=== PATIENT | female | born 1965 | race Caucasian/White ===

== ENCOUNTER 2017-09-29 18:23 | Emergency (ER) | payer OTHER, SELFPAY ==
[2017-09-29] MEDS ORDERED: Lidocaine 1% (PF) 30 ML VIAL ONE (20:24)
[2017-09-29] MEDS ORDERED: Diazepam 5 MG TAB ONE (20:25)
[2017-09-29] MEDS ORDERED: Ketorolac Tromethamine 30 MG/ML VIAL ONE (20:25)
== END 2017-09-29 21:25 | disposition home or self-care (01) ==
LOC: ERS 18:23
DX: M62.830 Muscle spasm of back (principal); K21.9 Gastro-esophageal reflux disease without esophagitis; I25.2 Old myocardial infarction; E78.5 Hyperlipidemia, unspecified; I10 Essential (primary) hypertension; J44.9 Chronic obstructive pulmonary disease, unspecified; F41.9 Anxiety disorder, unspecified; F32.9 Major depressive disorder, single episode, unspecified; F17.210 Nicotine dependence, cigarettes, uncomplicated; Z79.899 Other long term (current) drug therapy; Z79.82 Long term (current) use of aspirin
CPT/HCPCS: 20552; 96372; J1885; J2001

== ENCOUNTER 2018-09-23 18:27 | Emergency (ER) | payer SELFPAY ==
[2018-09-23] MEDS ORDERED: Lidocaine 4% Cream 5 GM TUBE w/ Tegaderm ONE (20:04)
== END 2018-09-23 21:25 | disposition home or self-care (01) ==
LOC: ERS 18:27
DX: L72.3 Sebaceous cyst (principal); F41.9 Anxiety disorder, unspecified; F32.9 Major depressive disorder, single episode, unspecified; F43.10 Post-traumatic stress disorder, unspecified; K21.9 Gastro-esophageal reflux disease without esophagitis; E78.5 Hyperlipidemia, unspecified; I10 Essential (primary) hypertension; J44.9 Chronic obstructive pulmonary disease, unspecified; F17.210 Nicotine dependence, cigarettes, uncomplicated; Z79.899 Other long term (current) drug therapy; Z79.82 Long term (current) use of aspirin
CPT/HCPCS: 99282

== ENCOUNTER 2019-01-29 11:38 | Observation (INO) | payer SELFPAY ==
[2019-01-29] MEDS ORDERED: ISOVUE-370 76%-LOCM 1 ML ONE (12:00)
[2019-01-29 12:05] LABS: #Basophils 0.1 thou/uL (0.0-0.2); #Eosinphils 0.1 thou/uL (0.0-0.7); #Lymphocytes 3.1 thou/uL (1.20-3.40); #Monocytes 0.6 thou/uL (0.11-0.59); #Neutrophils 5.5 thou/uL (1.40-6.50); %Basophils 0.9 % (0.0-1.0); %Eosinophils 0.6 % (0.0-10.0); %Lymphocytes 33.2 % (21.0-51.0); %Monocytes 6.2 % (0.0-10.0); %Neutrophils 59.1 % (42.0-75.0); Hemoglobin 14.8 g/dL (12.0-16.0); Mean Corpuscular HGB CONC 34.5 g/dL (32.0-36.0); Mean Corpuscular Hemoglobin 31.2 pg (27.0-31.0); Mean Corpuscular Volume 90.5 fL (78.0-98.0); Mean Platelet Volume 7.2 fL (7.4-10.4); Platelet Count 258 thou/uL (130-400); RBC Distribution Width 12.3 % (11.5-14.5); Red Blood Cell (RBC) Count 4.74 mill/uL (4.20-5.40); White Blood Cell (WBC) Count 9.3 thou/uL (4.8-10.8)
--- NOTE | 2019-01-29 12:21 | RAD ---
EXAM: Single view of the chest HISTORY: Chest pain and shortness of breath for 3 days COMPARISON: 02/15/2015 FINDINGS: Single view of the chest shows a normal sized cardiomediastinal silhouette. The patient is status post sternotomy. There is no evidence of consolidation, mass, or pleural effusion. The bones are unremarkable. IMPRESSION: No evidence of acute cardiopulmonary disease
[2019-01-29 12:32] LABS: ALT (SGPT) 36 U/L (8-55); AST (SGOT) 28 U/L (5-34); Albumin 4.7 g/dL (3.5-5.0); Alkaline Phosphatase 99 U/L (40-150); Anion Gap 14 mmol/L (10-20); BUN (Urea Nitrogen) 10 mg/dL (9.8-20.1); Bilirubin, Total 0.3 mg/dL (0.2-1.2); Calc. Creatinine Clearance 0 mL/min (70-130); Calcium 9.4 mg/dL (7.8-10.44); Carbon Dioxide 24 mmol/L (22-29); Chloride 103 mmol/L (98-107); Estimated GFR-MDRD 68; Globulin 2.6 g/dL (2.4-3.5); Glucose 181 mg/dL (70-105); Potassium 3.8 mmol/L (3.5-5.1); Protein, Total 7.3 g/dL (6.0-8.3); Sodium 137 mmol/L (136-145)
[2019-01-29] MEDS ORDERED: Acetaminophen 500 MG TAB ONE (12:56)
--- NOTE | 2019-01-29 13:24 | CT ---
EXAM: CT angiogram chest and abdomen with IV contrast and three-dimensional reconstructions PROVIDED CLINICAL HISTORY: Chest pain COMPARISON: None FINDINGS: Median sternotomy and CABG changes are seen. The heart, pericardium and great vessels demonstrate an otherwise unremarkable CT angiographic appearance. There is no evidence for thoracic aneurysm or dissection. There is no evidence for central or segmental pulmonary embolus. The lungs are free of si gnificant opacity. Sub-4 mm noncalcified right lower lobe pulmonary nodule. The airway appears patent and of normal caliber. There is no evidence for thoracic lymph node enlargement. There is no evidence for abdominal aortic aneurysm. The mesenteric and renal vessels demonstrate no s ignificant stenosis. Multifocal atelectatic vascular calcification and mural plaque involving the distal abdominal aorta. Diffuse fatty infiltration of the liver. The solid abdominal organs are subop timally evaluated in the arterial phase of contrast but demonstrate an otherwise unremarkable CT appearance for the phase of contrast in which the study was acquired. The osseous structures demonstrate no concerning lytic or blastic lesions. Bilateral L5 pars defects with grade 1 spondylolisthesis of L5 on S1. IMPRESSION: No evidence for an acute process. Chronic findings as above.
[2019-01-29] MEDS ORDERED: Aspirin 325 MG TAB ONE (13:56)
[2019-01-29 15:43] LABS: Troponin I Less than 0.010 ng/mL (< 0.028)
[2019-01-29 16:13] VITALS: BMI 35.2
[2019-01-29] MEDS ORDERED: Cyclobenzaprine 10 MG TAB PO PRN (17:31)
[2019-01-29] MEDS ORDERED: Acetaminophen 325 MG TAB PO PRN (17:33)
[2019-01-29] MEDS ORDERED: Dextrose 50% Abboject 50 ML SYRINGE SLOW IVP PRN (17:33)
[2019-01-29] MEDS ORDERED: Ondansetron ODT 4 MG TAB PO PRN (17:33)
[2019-01-29] MEDS ORDERED: Ondansetron PF 4 MG/2 ML Vial IVP PRN (17:33)
[2019-01-29] MEDS ORDERED: Dextrose 5% in Water 1,000 ML IV PRN (17:33)
[2019-01-29] MEDS ORDERED: HumaLOG 300 UNITS/3 ML VIAL SC PRN ×2 (17:33)
[2019-01-29 18:24] LABS: Troponin I Less than 0.010 ng/mL (< 0.028)
[2019-01-29] MEDS ORDERED: Sodium Chloride 0.9% (PF) 10 ML VIAL FS PRN (18:30)
[2019-01-29] MEDS ORDERED: Pantoprazole 40 MG VIAL IVP SCH (18:30)
[2019-01-29] MEDS: Gabapentin 300 MG CAP PO SCH (20:03)
[2019-01-29] MEDS: clonazePAM 1 MG TAB PO SCH (20:03)
[2019-01-29] MEDS: Metoprolol Tartrate 25 MG TAB PO SCH (20:03)
[2019-01-29] MEDS ORDERED: Zolpidem Tartrate 5 MG TAB PO SCH (21:00)
[2019-01-29] MEDS ORDERED: Prazosin HCl 1 MG CAP PO SCH (21:00)
--- NOTE | 2019-01-29 22:57 | HP ---
PRIMARY CARE PHYSICIAN: [facility] in [place]. CHIEF COMPLAINT: Chest pain. HISTORY OF PRESENT ILLNESS: Ms. Tracy is a 53-year-old female with past medical history of hypertension; hyperlipidemia; coronary artery disease, status post CABG; GERD; COPD, who had presented to [facility] earlier today after she has been experiencing worsening chest pain over the last 4 days, now she states that the chest pain comes and goes and is worse with activity. She had denied any fever, chills, any lightheadedness, blurred vision or dizziness, any shortness of breath, abdominal pain, nausea, vomiting, or change in stool. She had stated that during this time, she has also had chronic headaches, and appears to be at her baseline. However, when she would take her home medications for pain, the chest pain or the headaches are not resolved. During her workup in the ED, her serial troponin was found to be negative x2. Her EKG showed normal sinus rhythm and her portable chest x-ray was normal. She also underwent a CT dissection protocol, which showed no evidence of acute process; however, chronic findings are noted. Her blood pressure and other vital signs remained stable and she was given aspirin and Tylenol, which did not improve her symptoms. REVIEW OF SYSTEMS: All other systems reviewed and found to be negative unless mentioned in HPI. PAST MEDICAL HISTORY: Hypertension, hyperlipidemia, gastroesophageal reflux disease, coronary artery disease, status post CABG, fibromyalgia, COPD. PAST SURGICAL HISTORY: Hysterectomy, coronary artery bypass graft surgery x4 vessels, and carpal tunnel surgery on the left wrist. PAST PSYCHIATRIC HISTORY: Anxiety, depression, and posttraumatic stress disorder. SOCIAL HISTORY: The patient denies alcohol or illicit drug use. She is a former cigarette smoker and is currently vaping for the last 3 years. Before that she had smoked cigarettes for about 30 years. KNOWN ALLERGIES: No known drug allergies. CURRENT HOME MEDICATIONS: 1. Clonazepam 1 mg p.o. t.i.d. 2. Metformin 500 mg oral twice daily. 3. Protonix 40 mg oral daily. 4. Amlodipine 10 mg oral daily. 5. Aspirin 81 mg daily. 6. Buspirone 10 mg oral daily. 7. Cyclobenzaprine p.o. at bedtime p.r.n. muscle spasms. 8. Gabapentin 300 mg oral twice daily. 9. Lamictal 100 mg oral daily. 10. Metoprolol 25 mg oral twice daily. 11. Prazosin 2 mg oral at bedtime. 12. Zolpidem 10 mg oral at bedtime. PHYSICAL EXAMINATION: VITAL SIGNS: BP 128/62, pulse 69, respirations 20, temperature 97.7, O2 saturation 97% on room air. GENERAL: The patient is awake, alert, and oriented x3. She is currently lying comfortably in bed and in no acute distress. HEENT: Atraumatic, normocephalic. Pupils are round and reactive to light. Extraocular muscles intact. Moist mucous membranes noted. NECK: Soft, supple. Trachea midline. CARDIOVASCULAR: Positive S1 and S2. Regular rate and rhythm. No murmur auscultated. RESPIRATORY: Clear to auscultation bilaterally. No wheezes, rales, or rhonchi. ABDOMEN: Soft, nontender. Bowel sounds present. MUSCULOSKELETAL: Moves all extremities equal. Pedal and radial pulses 2+ bilaterally. No edema noted. NEUROLOGIC: Cranial nerves 2 through 12 grossly intact. No focal deficits noted. Speech intact and normal. Gait not assessed. SKIN: Warm, dry, and intact. No rashes. No ulceration noted. PSYCHIATRIC: Good mood and affect. LABORATORY DATA: WBC 9.3, RBC 4.74, hemoglobin 14.8, hematocrit 42.9, platelets 258. Sodium 137, potassium 3.8, anion gap 14, BUN 10, creatinine 0.87, estimated GFR 68, glucose 181, troponin less than 0.010 x2. DIAGNOSTIC IMAGING: Portable chest x-ray showed no evidence of acute cardiopulmonary disease. CTA of the chest showed no evidence of acute process; however, chronic findings noted including a grade 1 spondylolisthesis of L5 and S1 and no further changes. ASSESSMENT AND PLAN: 1. Chest pain, so far serial troponins were found to be negative x2. CT of the chest was unremarkable. Her blood pressure and other vital signs remained stable, and her chest pain has also improved. We will order a nuclear medicine cardiac stress test for the morning to rule out acute coronary syndrome and she will be monitored on telemetry for any further arrhythmias. 2. Hypertension. Continue home regimen and monitor blood pressure and other vital signs closely. 3. Hyperlipidemia. Continue home statin. 4. Diabetes mellitus type 2, hold home dose of metformin and place on insulin sliding scale with frequent Accu-Cheks. 5. History of coronary artery disease status post coronary artery bypass graft, continue home regimen. 6. History of chronic obstructive pulmonary disease, currently stable at this time. We will monitor patient's symptoms closely and if she becomes symptomatic, we will add DuoNebs as needed. 7. History of gastroesophageal reflux disease. Continue on IV Protonix. 8. Deep venous thrombosis and gastrointestinal prophylaxis. CODE STATUS: Full code. DISPOSITION: Pending further workup and clinical findings. Job ID: [id number]
[2019-01-30 05:31] LABS: #Basophils 0.1 thou/uL (0.0-0.2); #Eosinphils 0.1 thou/uL (0.0-0.7); #Lymphocytes 3.2 thou/uL (1.20-3.40); #Monocytes 0.6 thou/uL (0.11-0.59); #Neutrophils 4.2 thou/uL (1.40-6.50); %Basophils 0.9 % (0.0-1.0); %Eosinophils 1.8 % (0.0-10.0); %Lymphocytes 38.4 % (21.0-51.0); %Monocytes 7.8 % (0.0-10.0); %Neutrophils 51.1 % (42.0-75.0); Hemoglobin 14.7 g/dL (12.0-16.0); Mean Corpuscular HGB CONC 34.1 g/dL (32.0-36.0); Mean Corpuscular Hemoglobin 31.4 pg (27.0-31.0); Mean Platelet Volume 7.5 fL (7.4-10.4); Platelet Count 226 thou/uL (130-400); RBC Distribution Width 12.4 % (11.5-14.5); Red Blood Cell (RBC) Count 4.69 mill/uL (4.20-5.40); White Blood Cell (WBC) Count 8.3 thou/uL (4.8-10.8)
[2019-01-30 06:00] LABS: Anion Gap 13 mmol/L (10-20); BUN (Urea Nitrogen) 8 mg/dL (9.8-20.1); Calc. Creatinine Clearance 105 mL/min (70-130); Carbon Dioxide 24 mmol/L (22-29); Cardiac Risk 5.1 (Less than 4.5); Chloride 105 mmol/L (98-107); Cholesterol 173 mg/dl (< 200 Desired); Estimated GFR-MDRD 76; Glucose 121 mg/dL (70-105); HDL Cholesterol 34 mg/dL (>60 Neg Risk); LDL Cholesterol, Calculated 87 mg/dL; Potassium 4.2 mmol/L (3.5-5.1); Sodium 138 mmol/L (136-145); Triglycerides 258 mg/dL (Less than 150)
[2019-01-30] MEDS: Gabapentin 300 MG CAP PO SCH (08:02)
[2019-01-30] MEDS: clonazePAM 1 MG TAB PO SCH (08:02)
[2019-01-30] MEDS: Metoprolol Tartrate 25 MG TAB PO SCH ×2 (08:04→10:31)
[2019-01-30 08:20] VITALS: BP 129/62; TEMP 97.7
[2019-01-30] MEDS ORDERED: lamoTRIgine 100 MG TAB PO SCH (09:00)
[2019-01-30] MEDS ORDERED: Aspirin 81 mg Enteric Coated Tablet PO SCH (09:00)
[2019-01-30] MEDS ORDERED: busPIRone HCl 10 MG TAB PO SCH (09:00)
[2019-01-30] MEDS ORDERED: Pantoprazole 40 MG VIAL IVP SCH (09:00)
[2019-01-30] MEDS ORDERED: Enoxaparin Sodium 40 MG/0.4 ML SYRINGE SC SCH (09:00)
[2019-01-30] MEDS ORDERED: Amlodipine 10 MG TAB PO SCH (09:00)
[2019-01-30] MEDS ORDERED: Regadenoson 0.4 MG/5 ML SYRINGE ONE (09:49)
--- NOTE | 2019-01-30 10:35 | NM ---
EXAM: Myocardial perfusion scan PROVIDED CLINICAL HISTORY: Chest pain COMPARISON: 04/15/2013 FINDINGS: 27.8 mCi technetium 99m labeled sestamibi IV stress Normal, homogeneous distribution of radiotracer throughout the left ventricular myocardium. Gated catie ed demonstrate normal myocardial wall motion and thickening with calculated LVEF of 89%. IMPRESSION: No scintigraphic evidence for ischemia.
--- NOTE | 2019-01-30 13:15 | EKG ---
Test Reason : CP Blood Pressure : / mmHG Vent. Rate : 066 BPM Atrial Rate : 066 BPM P-R Int : 190 ms QRS Dur : 090 ms QT Int : 410 ms P-R-T Axes : 046 -25 074 degrees QTc Int : 429 ms Normal sinus rhythm Cannot rule out Anterior infarct , age undetermined Abnormal ECG T wave inversion I, aVL Confirmed by DAGMAR YOON DO ([id number]), legal editor TOLU VALVERDE ([id number]) on 01/30/2019 1:15:19 PM Referred By: KARRIE Confirmed By:DAGMAR YOON DO
--- NOTE | 2019-01-30 13:15 | EKG ---
Test Reason : Blood Pressure : / mmHG Vent. Rate : 079 BPM Atrial Rate : 079 BPM P-R Int : 184 ms QRS Dur : 088 ms QT Int : 394 ms P-R-T Axes : 055 -26 066 degrees QTc Int : 451 ms Normal sinus rhythm Cannot rule out Anterior infarct , age undetermined Abnormal ECG Confirmed by DAGMAR YOON DO ([id number]), copy editor TOLU VALVERDE ([id number]) on 01/30/2019 1:14:30 PM Referred By: Confirmed By:DAGMAR YOON DO
--- NOTE | 2019-01-30 20:09 | DIS ---
DATE OF ADMISSION: 01/29/2019 DATE OF DISCHARGE: 01/30/2019 DISCHARGE DIAGNOSES: 1. Chest pain. 2. Hypertension. 3. Hyperlipidemia. 4. Diabetes. 5. History of coronary artery disease. 6. History of chronic obstructive pulmonary disease. 7. History of gastroesophageal reflux disease. 8. History of anxiety and depression. 9. History of posttraumatic stress disorder. 10. History of fibromyalgia. HISTORY: This patient is a 53-year-old female, who presented via the emergency department with report of worsening chest pain over a 4-day. It was generally intermittent and somewhat related to activity. She also reported some intermittent headaches. She reported after admission that she had recently had her medications changed by her psychiatrist, and she had gone off citalopram onto another medication, and had worsening headaches along with these symptoms. She had subsequently discontinued it. HOSPITAL COURSE: In the emergency department, the patient's workup was negative for any evidence of ischemia with negative troponins and no ischemic changes on EKG. She subsequently had observation stay with serial troponins, all being negative. She had no significant ectopy or ischemic changes on telemetry. She had a CT dissection protocol, which showed no evidence of any acute processes. Chest x-ray was negative. Nuclear medicine stress test was ultimately negative for ischemia as well. With that, the patient reported improvement in her symptoms. She felt personally that her symptoms were likely related to the recent medication changes and her improvement had to do with the fact that she had discontinued that medication. PHYSICAL EXAMINATION: VITAL SIGNS: On the day of discharge, temperature is 97.7, pulse 76, respirations 18, O2 saturation 92% to 95% on room air, blood pressure 98/55 up to 129/62. GENERAL APPEARANCE: Slightly obese, age-appropriate female, in no distress. Awake, alert, oriented, pleasant, cooperative. HEART: Regular rate and rhythm. No murmurs. LUNGS: Clear. ABDOMEN: Benign. EXTREMITIES: No edema. DISPOSITION: The patient is discharged to home. DIET: She should have a heart healthy diet. ACTIVITY: As tolerated. MEDICATIONS: She will continue with her usual home medication with no new medications being added. Please see her discharge medication list for further details. FOLLOWUP: She should follow up with the [facility] in next available appointment and she should follow up with her psychiatrist for any new medication adjustments. Job ID: [id number]
== END 2019-01-30 12:11 | disposition home or self-care (01) ==
LOC: ERS 11:38 → 2SW 16:02
PROVIDERS: ADMIT Internal Medicine; ATTEND Internal Medicine
DX: R07.9 Chest pain, unspecified (principal); I10 Essential (primary) hypertension; E78.5 Hyperlipidemia, unspecified; E11.9 Type 2 diabetes mellitus without complications; I25.10 Atherosclerotic heart disease of native coronary artery without angina pectoris; J44.9 Chronic obstructive pulmonary disease, unspecified; K21.9 Gastro-esophageal reflux disease without esophagitis; F41.9 Anxiety disorder, unspecified; F41.8 Other specified anxiety disorders; F32.9 Major depressive disorder, single episode, unspecified; F43.10 Post-traumatic stress disorder, unspecified; F17.290 Nicotine dependence, other tobacco product, uncomplicated; Z79.82 Long term (current) use of aspirin; Z79.84 Long term (current) use of oral hypoglycemic drugs; Z79.899 Other long term (current) drug therapy; Z95.1 Presence of aortocoronary bypass graft
CPT/HCPCS: 36415; 36416; 71045; 71275; 72191; 74175; 78452; 80048; 80053; 80061; 84484; 85025; 90471; 90732; 93005; 93017; 94760; 96374; 96376; A9500; C9113; G0009; G0378; J2785; Q9966

== ENCOUNTER 2020-10-06 09:40 | Observation (INO) | payer OTHER ==
[2020-10-06 10:06] LABS: #Basophils 0.1 thou/uL (0.0-0.2); #Eosinphils 0.1 thou/uL (0.0-0.7); #Lymphocytes 3.3 thou/uL (1.20-3.40); #Monocytes 0.8 thou/uL (0.11-0.59); #Neutrophils 7.3 thou/uL (1.40-6.50); %Basophils 0.6 % (0.0-1.0); %Eosinophils 0.7 % (0.0-10.0); %Lymphocytes 28.4 % (21.0-51.0); %Monocytes 7.1 % (0.0-10.0); %Neutrophils 63.2 % (42.0-75.0); Hemoglobin 15.9 g/dL (12.0-16.0); Mean Corpuscular HGB CONC 34.4 g/dL (32.0-36.0); Mean Corpuscular Hemoglobin 32.3 pg (27.0-31.0); Mean Corpuscular Volume 94.1 fL (78.0-98.0); Mean Platelet Volume 6.7 fL (7.4-10.4); Platelet Count 282 thou/uL (130-400); RBC Distribution Width 13.2 % (11.5-14.5); Red Blood Cell (RBC) Count 4.92 mill/uL (4.20-5.40); White Blood Cell (WBC) Count 11.5 thou/uL (4.8-10.8)
[2020-10-06 10:30] LABS: ALT (SGPT) 15 U/L (8-55); AST (SGOT) 12 U/L (5-34); Albumin 4.1 g/dL (3.5-5.0); Alkaline Phosphatase 89 U/L (40-110); Anion Gap 13 mmol/L (10-20); BUN (Urea Nitrogen) 10 mg/dL (9.8-20.1); Bilirubin, Total 0.3 mg/dL (0.2-1.2); Calc. Creatinine Clearance 0 mL/min (70-130); Calcium 9.3 mg/dL (7.8-10.44); Carbon Dioxide 24 mmol/L (22-29); Chloride 106 mmol/L (98-107); Globulin 3.1 g/dL (2.4-3.5); Glucose 130 mg/dL (70-105); Potassium 4.8 mmol/L (3.5-5.1); Protein, Total 7.2 g/dL (6.0-8.3); Sodium 138 mmol/L (136-145)
[2020-10-06] MEDS ORDERED: Aspirin Chewable 81 MG TAB ONE (10:33)
[2020-10-06] MEDS ORDERED: cefTRIAXone\\ROCEPHIN 2 GM VIAL ONE (10:33)
[2020-10-06] MEDS ORDERED: predniSONE 20 MG TAB ONE (10:33)
[2020-10-06] MEDS ORDERED: Albuterol 200 PUFF (6.7GM INHALER) ONE (10:35)
[2020-10-06] MEDS ORDERED: Azithromycin 500 MG VIAL ONE (11:14)
[2020-10-06] MEDS ORDERED: Azithromycin 250 MG TAB ONE (11:20)
[2020-10-06] MEDS ORDERED: Dextrose 50% Abboject 50 ML SYRINGE SLOW IVP PRN (13:58)
[2020-10-06] MEDS ORDERED: HumaLOG 300 UNITS/3 ML VIAL SC PRN ×2 (13:58)
[2020-10-06] MEDS ORDERED: Dextrose 5% in Water 1,000 ML IV PRN (13:58)
[2020-10-06] MEDS ORDERED: Nicotine 21 MG PATCH TD SCH (14:00)
[2020-10-06 14:29] LABS: Troponin I Less than 0.010 ng/mL (< 0.028)
[2020-10-06 15:29] VITALS: BMI 32.8
[2020-10-06 16:35] LABS: Troponin I Less than 0.010 ng/mL (< 0.028)
[2020-10-06] MEDS ORDERED: clonazePAM 1 MG TAB PO PRN (19:25)
[2020-10-06] MEDS ORDERED: Lantus 1000 UNITS/10 ML VIAL SC SCH (21:00)
[2020-10-06] MEDS ORDERED: OLANZapine 5 MG TAB PO SCH (21:00)
[2020-10-06] MEDS ORDERED: Oxybutynin ER 5 MG TAB PO SCH (21:00)
[2020-10-06] MEDS ORDERED: Prazosin HCl 1 MG CAP PO SCH (21:00)
[2020-10-06] MEDS ORDERED: Zolpidem Tartrate 5 MG TAB PO SCH (21:00)
[2020-10-06] MEDS: Gabapentin 300 MG CAP PO SCH (21:24)
[2020-10-06] MEDS: Metoprolol Tartrate 25 MG TAB PO SCH (21:37)
[2020-10-07 00:09] LABS: SARS-CoV-2 PCR NAA for Saliva Not Detected (NotDetected)
[2020-10-07 04:46] LABS: #Basophils 0.1 thou/uL (0.0-0.2); #Eosinphils 0.1 thou/uL (0.0-0.7); #Lymphocytes 3.8 thou/uL (1.20-3.40); #Monocytes 1.1 thou/uL (0.11-0.59); #Neutrophils 8.2 thou/uL (1.40-6.50); %Basophils 0.7 % (0.0-1.0); %Eosinophils 0.5 % (0.0-10.0); %Lymphocytes 28.6 % (21.0-51.0); %Monocytes 8.4 % (0.0-10.0); %Neutrophils 61.8 % (42.0-75.0); Hemoglobin 14.1 g/dL (12.0-16.0); Mean Corpuscular HGB CONC 32.6 g/dL (32.0-36.0); Mean Corpuscular Hemoglobin 30.9 pg (27.0-31.0); Mean Corpuscular Volume 94.9 fL (78.0-98.0); Platelet Count 262 thou/uL (130-400); RBC Distribution Width 13.3 % (11.5-14.5); Red Blood Cell (RBC) Count 4.56 mill/uL (4.20-5.40); White Blood Cell (WBC) Count 13.3 thou/uL (4.8-10.8)
[2020-10-07 05:03] LABS: Anion Gap 11 mmol/L (10-20); BUN (Urea Nitrogen) 10 mg/dL (9.8-20.1); Calc. Creatinine Clearance 101 mL/min (70-130); Calcium 9.1 mg/dL (7.8-10.44); Carbon Dioxide 26 mmol/L (22-29); Chloride 105 mmol/L (98-107); Glucose 105 mg/dL (70-105); Potassium 4.3 mmol/L (3.5-5.1); Sodium 138 mmol/L (136-145)
[2020-10-07] MEDS ORDERED: predniSONE 20 MG TAB PO SCH (08:00)
[2020-10-07] MEDS: Metoprolol Tartrate 25 MG TAB PO SCH (08:28)
[2020-10-07 08:29] VITALS: BP 126/67; TEMP 98.1
[2020-10-07] MEDS: Gabapentin 300 MG CAP PO SCH (08:29)
[2020-10-07] MEDS ORDERED: Amlodipine 10 MG TAB PO SCH (09:00)
[2020-10-07] MEDS ORDERED: Aspirin 81 mg Enteric Coated Tablet PO SCH (09:00)
[2020-10-07] MEDS ORDERED: lamoTRIgine 100 MG TAB PO SCH (09:00)
[2020-10-07] MEDS ORDERED: busPIRone HCl 10 MG TAB PO SCH (09:00)
[2020-10-07] MEDS ORDERED: Citalopram 20 MG TAB PO SCH (09:00)
[2020-10-07] MEDS ORDERED: cefTRIAXone\\ROCEPHIN 2 GM in Sodium Chloride 0.9% 100 ML IVPB SCH (11:00)
[2020-10-07] MEDS ORDERED: Azithromycin 250 MG TAB PO SCH (11:00)
== END 2020-10-07 11:07 | disposition home or self-care (01) ==
LOC: ERS 09:40 → 2SW 13:15
PROVIDERS: ADMIT Internal Medicine; ATTEND Internal Medicine
DX: J18.9 Pneumonia, unspecified organism (principal); J20.9 Acute bronchitis, unspecified; J44.0 Chronic obstructive pulmonary disease with (acute) lower respiratory infection; J44.1 Chronic obstructive pulmonary disease with (acute) exacerbation; R07.9 Chest pain, unspecified; I10 Essential (primary) hypertension; E78.5 Hyperlipidemia, unspecified; E11.9 Type 2 diabetes mellitus without complications; I25.2 Old myocardial infarction; F17.210 Nicotine dependence, cigarettes, uncomplicated; K21.9 Gastro-esophageal reflux disease without esophagitis; M79.7 Fibromyalgia; Z79.82 Long term (current) use of aspirin; Z79.84 Long term (current) use of oral hypoglycemic drugs; Z79.899 Other long term (current) drug therapy; Z88.5 Allergy status to narcotic agent; Z20.822 Contact with and (suspected) exposure to COVID-19
CPT/HCPCS: 36415; 36416; 71045; 80048; 80053; 84484; 85025; 93005; 96365; G0378; J0456; J0696; J1815; J7512; U0003; U0005

== ENCOUNTER 2020-10-27 11:04 | Outpatient (CLI) | payer OTHER | END 2020-10-27 11:05 | disposition home or self-care (01) | LOC: BICMAMMO 11:04 | PROVIDERS: ATTEND Nurse Practitioner Family | DX: Z12.31 Encounter for screening mammogram for malignant neoplasm of breast (principal); Z85.43 Personal history of malignant neoplasm of ovary | CPT/HCPCS: 77067 ==

== ENCOUNTER 2020-11-04 09:55 | Inpatient (IN) | payer OTHER ==
[2020-11-04] MEDS ORDERED: Metoclopramide HCl 10 MG/2 ML VIAL ONE (11:56)
[2020-11-04] MEDS ORDERED: methylPREDNISolone Sod Succ/PF 125 MG/2 ML VIAL ONE (11:56)
[2020-11-04] MEDS ORDERED: Ketorolac Tromethamine 30 MG/ML VIAL ONE (11:56)
[2020-11-04] MEDS ORDERED: diphenhydrAMINE 50 MG/ML VIAL ONE (11:56)
[2020-11-04 12:14] LABS: Hemoglobin 13.2 g/dL (12.0-16.0); Mean Corpuscular HGB CONC 34.3 g/dL (32.0-36.0); Mean Corpuscular Hemoglobin 32.5 pg (27.0-31.0); Mean Corpuscular Volume 94.6 fL (78.0-98.0); Mean Platelet Volume 6.9 fL (7.4-10.4); Platelet Count 168 thou/uL (130-400); RBC Distribution Width 11.9 % (11.5-14.5); Red Blood Cell (RBC) Count 4.07 mill/uL (4.20-5.40); White Blood Cell (WBC) Count 14.8 thou/uL (4.8-10.8)
[2020-11-04 12:33] LABS: Band 13 % (5-11); Lymphocytes 8 % (21-51); MDiff Complete? YES; Monocytes 4 % (0-10); Neutrophil 75 % (42-75); Platelet Morphology Comment Appears Adequate; RBC Morphology Normal; Vacuoles SLIGHT
[2020-11-04 12:33] LABS: ALT (SGPT) 16 U/L (8-55); AST (SGOT) 14 U/L (5-34); Albumin 3.6 g/dL (3.5-5.0); Alkaline Phosphatase 76 U/L (40-110); BUN (Urea Nitrogen) 16 mg/dL (9.8-20.1); Bilirubin, Total 0.5 mg/dL (0.2-1.2); Calc. Creatinine Clearance 0 mL/min (70-130); Globulin 3.1 g/dL (2.4-3.5); Glucose 174 mg/dL (70-105); Magnesium 1.8 mg/dL (1.6-2.6); Protein, Total 6.7 g/dL (6.0-8.3)
[2020-11-04] MEDS ORDERED: Albuterol Sulfate 2.5 mg/0.5 ml Neb ONE (12:35)
[2020-11-04] MEDS ORDERED: Albuterol Sulfate 2.5 mg/3 ml Neb ONE (12:35)
[2020-11-04 12:46] LABS: Chloride 97 mmol/L (98-107); Potassium 3.9 mmol/L (3.5-5.1); Sodium 131 mmol/L (136-145)
[2020-11-04] MEDS ORDERED: Sodium Chloride 0.9% 1,000 ML IV SCH (14:00)
[2020-11-04 14:11] LABS: SARS-CoV-2 NAA Rapid Test Not Detected (NotDetected)
[2020-11-04 14:45] LABS: Bilirubin Negative (Negative); Blood, Urine Trace (Negative); Clarity Clear (Clear); Glucose, Urine (Dipstick) Normal (Negative); Ketone, Urine Negative (Negative); Leukocyte 75 Leu/uL (Negative); Nitrite Negative (Negative); Protein, Urine (Dipstick) 50 mg/dL (Neg-Trace); RBC/HPF 0-3 HPF (0-3); Squamous Epithelial 0-3 HPF (0-3); Urobilinogen Normal mg/dL (Less than 2)
[2020-11-04 14:47] LABS: Bacteria/HPF 1+ HPF (None Seen)
[2020-11-04] MEDS ORDERED: Albuterol Sulfate 2.5 mg/3 ml Neb NEB PRN (16:36)
[2020-11-04] MEDS ORDERED: Acetaminophen 650 MG Suppository PR PRN (16:36)
[2020-11-04] MEDS ORDERED: Ondansetron ODT 4 MG TAB PO PRN (16:36)
[2020-11-04] MEDS ORDERED: Ondansetron PF 4 MG/2 ML Vial IVP PRN (16:36)
[2020-11-04] MEDS ORDERED: Guaifenesin DM 100-10/5 ML UDCUP PO PRN (16:36)
[2020-11-04] MEDS ORDERED: Dextrose 5% in Water 1,000 ML IV PRN (16:39)
[2020-11-04] MEDS ORDERED: Dextrose 50% Abboject 50 ML SYRINGE SLOW IVP PRN (16:39)
[2020-11-04] MEDS ORDERED: Nicotine 7 MG PATCH TD SCH (17:00)
[2020-11-04] MEDS: Sodium Chloride 0.9% 1,000 ML IV SCH (17:13)
[2020-11-04 17:34] LABS: Carbon Dioxide 13 mmol/L (22-29)
[2020-11-04 17:35] VITALS: BMI 34.4
[2020-11-04 17:43] LABS: Anion Gap 25 mmol/L (10-20)
[2020-11-04] MEDS: Insulin Regular 300 UNITS/3 ML VIAL SC PRN ×2 (18:10→20:27)
[2020-11-04] MEDS: Gabapentin 300 MG CAP PO SCH (20:13)
[2020-11-04] MEDS: OLANZapine 5 MG TAB PO SCH (20:13)
[2020-11-04] MEDS: Zolpidem Tartrate 5 MG TAB PO SCH (21:13)
[2020-11-04] MEDS: clonazePAM 1 MG TAB PO PRN (21:13)
[2020-11-04] MEDS: Oxybutynin ER 5 MG TAB PO SCH (21:13)
[2020-11-05] MEDS: Insulin Regular 300 UNITS/3 ML VIAL SC PRN ×4 (05:45→20:26)
[2020-11-05] MEDS: Sodium Chloride 0.9% 1,000 ML IV SCH (05:46)
[2020-11-05 05:59] LABS: #Monocytes 0.9 thou/uL (0.11-0.59); #Neutrophils 17.5 thou/uL (1.40-6.50); %Basophils 0.2 % (0.0-1.0); %Eosinophils 0.1 % (0.0-10.0); %Lymphocytes 4.9 % (21.0-51.0); %Monocytes 4.5 % (0.0-10.0); %Neutrophils 90.3 % (42.0-75.0); Mean Corpuscular HGB CONC 33.4 g/dL (32.0-36.0); Mean Corpuscular Hemoglobin 32.3 pg (27.0-31.0); Mean Corpuscular Volume 96.7 fL (78.0-98.0); Mean Platelet Volume 7.4 fL (7.4-10.4); Platelet Count 162 thou/uL (130-400); RBC Distribution Width 12.1 % (11.5-14.5); Red Blood Cell (RBC) Count 4.03 mill/uL (4.20-5.40); White Blood Cell (WBC) Count 19.4 thou/uL (4.8-10.8)
[2020-11-05 06:10] LABS: Anion Gap 14 mmol/L (10-20); BUN (Urea Nitrogen) 17 mg/dL (9.8-20.1); Calc. Creatinine Clearance 84 mL/min (70-130); Calcium 8.8 mg/dL (7.8-10.44); Carbon Dioxide 20 mmol/L (22-29); Chloride 105 mmol/L (98-107); Glucose 262 mg/dL (70-105); Potassium 4.5 mmol/L (3.5-5.1); Sodium 134 mmol/L (136-145)
[2020-11-05] MEDS: Acetaminophen 325 MG TAB PO PRN (08:20)
[2020-11-05] MEDS: lamoTRIgine 100 MG TAB PO SCH (08:21)
[2020-11-05] MEDS: Gabapentin 300 MG CAP PO SCH ×2 (08:21→20:19)
[2020-11-05] MEDS: Citalopram 20 MG TAB PO SCH (08:22)
[2020-11-05] MEDS: busPIRone HCl 10 MG TAB PO SCH (08:22)
[2020-11-05] MEDS: Aspirin 81 mg Enteric Coated Tablet PO SCH (08:22)
[2020-11-05] MEDS: predniSONE 20 MG TAB PO SCH (08:22)
[2020-11-05] MEDS: clonazePAM 1 MG TAB PO PRN ×2 (10:54→20:23)
[2020-11-05] MEDS: Nicotine 7 MG PATCH TD SCH ×2 (13:36→20:20)
[2020-11-05] MEDS: Ketorolac Tromethamine 30 MG/ML VIAL IVP PRN (15:48)
[2020-11-05] MEDS: OLANZapine 5 MG TAB PO SCH (20:18)
[2020-11-05] MEDS: Zolpidem Tartrate 5 MG TAB PO SCH (20:19)
[2020-11-05] MEDS: Oxybutynin ER 5 MG TAB PO SCH (20:19)
[2020-11-05] MEDS: Enoxaparin Sodium 40 MG/0.4 ML SYRINGE SC SCH (20:20)
[2020-11-06] MEDS: Insulin Regular 300 UNITS/3 ML VIAL SC PRN ×4 (06:31→20:33)
[2020-11-06] MEDS: Ketorolac Tromethamine 30 MG/ML VIAL IVP PRN ×3 (07:53→22:56)
[2020-11-06] MEDS: Aspirin 81 mg Enteric Coated Tablet PO SCH (09:43)
[2020-11-06] MEDS: lamoTRIgine 100 MG TAB PO SCH (09:43)
[2020-11-06] MEDS: Citalopram 20 MG TAB PO SCH (09:44)
[2020-11-06] MEDS: Gabapentin 300 MG CAP PO SCH ×2 (09:44→20:32)
[2020-11-06] MEDS: busPIRone HCl 10 MG TAB PO SCH (09:44)
[2020-11-06] MEDS: predniSONE 20 MG TAB PO SCH (09:44)
[2020-11-06] MEDS: cefTRIAXone\\ROCEPHIN 2 GM in Sodium Chloride 0.9% 100 ML IVPB SCH (14:48)
[2020-11-06] MEDS: Nicotine 7 MG PATCH TD SCH (16:49)
[2020-11-06] MEDS ORDERED: Docusate 100 MG CAP PO PRN (20:28)
[2020-11-06] MEDS: Zolpidem Tartrate 5 MG TAB PO SCH (20:32)
[2020-11-06] MEDS: Oxybutynin ER 5 MG TAB PO SCH (20:32)
[2020-11-06] MEDS: OLANZapine 5 MG TAB PO SCH (20:33)
[2020-11-06] MEDS: Enoxaparin Sodium 40 MG/0.4 ML SYRINGE SC SCH (20:33)
[2020-11-06] MEDS: clonazePAM 1 MG TAB PO PRN (20:34)
[2020-11-07 06:43] LABS: Anion Gap 15 mmol/L (10-20); BUN (Urea Nitrogen) 16 mg/dL (9.8-20.1); Calc. Creatinine Clearance 87 mL/min (70-130); Calcium 8.3 mg/dL (7.8-10.44); Carbon Dioxide 24 mmol/L (22-29); Chloride 106 mmol/L (98-107); Glucose 129 mg/dL (70-105); Potassium 3.8 mmol/L (3.5-5.1); Sodium 141 mmol/L (136-145)
[2020-11-07 06:47] LABS: Mean Corpuscular HGB CONC 34.2 g/dL (32.0-36.0); Mean Corpuscular Hemoglobin 33.1 pg (27.0-31.0); Mean Corpuscular Volume 96.9 fL (78.0-98.0); Platelet Count 212 thou/uL (130-400); RBC Distribution Width 12.2 % (11.5-14.5); Red Blood Cell (RBC) Count 3.63 mill/uL (4.20-5.40)
[2020-11-07] MEDS: Ketorolac Tromethamine 30 MG/ML VIAL IVP PRN ×2 (07:09→15:00)
[2020-11-07 07:48] LABS: Band 20 % (5-11); Lymphocytes 23 % (21-51); MDiff Complete? YES; Monocytes 2 % (0-10); Neutrophil 49 % (42-75); Polychromasia SLIGHT = 2-3 cells (100X) (0-2/hpf); Reactive Lymphocytes 6 % (0-10)
[2020-11-07] MEDS: Gabapentin 300 MG CAP PO SCH ×2 (08:20→21:12)
[2020-11-07] MEDS: busPIRone HCl 10 MG TAB PO SCH (08:20)
[2020-11-07] MEDS: Citalopram 20 MG TAB PO SCH (08:20)
[2020-11-07] MEDS: lamoTRIgine 100 MG TAB PO SCH (08:21)
[2020-11-07] MEDS: Aspirin 81 mg Enteric Coated Tablet PO SCH (08:21)
[2020-11-07] MEDS: Insulin Regular 300 UNITS/3 ML VIAL SC PRN (12:42)
[2020-11-07] MEDS: cefTRIAXone\\ROCEPHIN 2 GM in Sodium Chloride 0.9% 100 ML IVPB SCH (13:18)
[2020-11-07] MEDS: Nicotine 7 MG PATCH TD SCH (14:58)
[2020-11-07] MEDS: Acetaminophen 325 MG TAB PO PRN (18:31)
[2020-11-07] MEDS: Oxybutynin ER 5 MG TAB PO SCH (21:11)
[2020-11-07] MEDS: Zolpidem Tartrate 5 MG TAB PO SCH (21:11)
[2020-11-07] MEDS: OLANZapine 5 MG TAB PO SCH (21:11)
[2020-11-07] MEDS: Enoxaparin Sodium 40 MG/0.4 ML SYRINGE SC SCH (21:12)
[2020-11-08] MEDS: Ketorolac Tromethamine 30 MG/ML VIAL IVP PRN (02:12)
[2020-11-08 08:04] LABS: Hemoglobin 12.4 g/dL (12.0-16.0); Mean Corpuscular HGB CONC 34.1 g/dL (32.0-36.0); Mean Corpuscular Hemoglobin 33.1 pg (27.0-31.0); Mean Corpuscular Volume 97.2 fL (78.0-98.0); Mean Platelet Volume 6.9 fL (7.4-10.4); Platelet Count 232 thou/uL (130-400); RBC Distribution Width 12.4 % (11.5-14.5); Red Blood Cell (RBC) Count 3.76 mill/uL (4.20-5.40); White Blood Cell (WBC) Count 14.5 thou/uL (4.8-10.8)
[2020-11-08 08:22] LABS: Anion Gap 13 mmol/L (10-20); BUN (Urea Nitrogen) 13 mg/dL (9.8-20.1); Calc. Creatinine Clearance 77 mL/min (70-130); Calcium 8.2 mg/dL (7.8-10.44); Carbon Dioxide 27 mmol/L (22-29); Chloride 103 mmol/L (98-107); Glucose 126 mg/dL (70-105); Sodium 139 mmol/L (136-145)
[2020-11-08] MEDS: Aspirin 81 mg Enteric Coated Tablet PO SCH (08:43)
[2020-11-08] MEDS: Citalopram 20 MG TAB PO SCH (08:43)
[2020-11-08] MEDS: busPIRone HCl 10 MG TAB PO SCH (08:43)
[2020-11-08] MEDS: Gabapentin 300 MG CAP PO SCH ×2 (08:43→20:09)
[2020-11-08] MEDS: lamoTRIgine 100 MG TAB PO SCH (08:44)
[2020-11-08 09:58] LABS: Band 12 % (5-11); Lymphocytes 18 % (21-51); MDiff Complete? YES; Metamyelocyte 1 % (0-0); Monocytes 6 % (0-10); Myelocyte 1 % (0-0); Neutrophil 59 % (42-75); Platelet Morphology Comment Appears Adequate; RBC Morphology Normal; Reactive Lymphocytes 3 % (0-10)
[2020-11-08] MEDS: Acetaminophen 325 MG TAB PO PRN (12:31)
[2020-11-08] MEDS: cefTRIAXone\\ROCEPHIN 2 GM in Sodium Chloride 0.9% 100 ML IVPB SCH (14:42)
[2020-11-08] MEDS: Nicotine 7 MG PATCH TD SCH (14:43)
[2020-11-08] MEDS: Insulin Regular 300 UNITS/3 ML VIAL SC PRN (16:52)
[2020-11-08] MEDS: Enoxaparin Sodium 40 MG/0.4 ML SYRINGE SC SCH (20:08)
[2020-11-08] MEDS: Zolpidem Tartrate 5 MG TAB PO SCH (20:09)
[2020-11-08] MEDS: OLANZapine 5 MG TAB PO SCH (20:09)
[2020-11-08] MEDS: Oxybutynin ER 5 MG TAB PO SCH (20:09)
[2020-11-08] MEDS: clonazePAM 1 MG TAB PO PRN (20:19)
[2020-11-09 06:26] LABS: Band 1 % (5-11); Eosinophils 1 % (0-10); Hemoglobin 12.5 g/dL (12.0-16.0); Lymphocytes 24 % (21-51); MDiff Complete? YES; Mean Corpuscular HGB CONC 34.2 g/dL (32.0-36.0); Mean Corpuscular Hemoglobin 33.2 pg (27.0-31.0); Mean Corpuscular Volume 97.1 fL (78.0-98.0); Mean Platelet Volume 6.7 fL (7.4-10.4); Metamyelocyte 2 % (0-0); Monocytes 6 % (0-10); Myelocyte 2 % (0-0); Neutrophil 64 % (42-75); Platelet Count 244 thou/uL (130-400); Platelet Morphology Comment Appears Adequate; RBC Distribution Width 12.5 % (11.5-14.5); Red Blood Cell (RBC) Count 3.78 mill/uL (4.20-5.40); White Blood Cell (WBC) Count 12.5 thou/uL (4.8-10.8)
[2020-11-09 06:28] LABS: Anion Gap 13 mmol/L (10-20); BUN (Urea Nitrogen) 12 mg/dL (9.8-20.1); Calc. Creatinine Clearance 73 mL/min (70-130); Calcium 8.2 mg/dL (7.8-10.44); Carbon Dioxide 27 mmol/L (22-29); Chloride 104 mmol/L (98-107); Glucose 134 mg/dL (70-105); Potassium 3.9 mmol/L (3.5-5.1); Sodium 140 mmol/L (136-145)
[2020-11-09] MEDS: Aspirin 81 mg Enteric Coated Tablet PO SCH (08:49)
[2020-11-09] MEDS: Gabapentin 300 MG CAP PO SCH (08:50)
[2020-11-09] MEDS: Citalopram 20 MG TAB PO SCH (08:50)
[2020-11-09] MEDS: busPIRone HCl 10 MG TAB PO SCH (08:50)
[2020-11-09] MEDS: lamoTRIgine 100 MG TAB PO SCH (08:50)
[2020-11-09] MEDS: Acetaminophen 325 MG TAB PO PRN (09:55)
[2020-11-09] MEDS: Insulin Regular 300 UNITS/3 ML VIAL SC PRN (12:19)
[2020-11-09] MEDS: cefTRIAXone\\ROCEPHIN 2 GM in Sodium Chloride 0.9% 100 ML IVPB SCH (13:55)
[2020-11-09] MEDS: Nicotine 7 MG PATCH TD SCH (14:37)
[2020-11-09 14:45] VITALS: TEMP 97.5
[2020-11-09 15:34] VITALS: BP 147/87
== END 2020-11-09 15:37 | disposition home or self-care (01) | DRG 872 ==
LOC: ERS 09:55 → T4-A 15:22
PROVIDERS: ADMIT Family Medicine; ATTEND Internal Medicine
DX: A41.51 Sepsis due to Escherichia coli [E. coli] (principal); N12 Tubulo-interstitial nephritis, not specified as acute or chronic; J44.1 Chronic obstructive pulmonary disease with (acute) exacerbation; N17.9 Acute kidney failure, unspecified; I10 Essential (primary) hypertension; E78.5 Hyperlipidemia, unspecified; K21.9 Gastro-esophageal reflux disease without esophagitis; M79.7 Fibromyalgia; E11.9 Type 2 diabetes mellitus without complications; I25.10 Atherosclerotic heart disease of native coronary artery without angina pectoris; Z20.822 Contact with and (suspected) exposure to COVID-19; F17.210 Nicotine dependence, cigarettes, uncomplicated; I25.2 Old myocardial infarction; Z95.1 Presence of aortocoronary bypass graft; Z88.5 Allergy status to narcotic agent; Z79.82 Long term (current) use of aspirin; Z79.899 Other long term (current) drug therapy; Z85.41 Personal history of malignant neoplasm of cervix uteri; Z90.710 Acquired absence of both cervix and uterus; Z98.890 Other specified postprocedural states; Z79.84 Long term (current) use of oral hypoglycemic drugs; Z71.6 Tobacco abuse counseling
CPT/HCPCS: 0240U; 36415; 36416; 71045; 80048; 80053; 81003; 81015; 83605; 83735; 83880; 84443; 84484; 85025; 87040; 87077; 87086; 87149; 87186; 87633; 87798; 94640; 96365; 96375; J0696; J1200; J1650; J1815; J1885; J1956; J2765; J2930; J3490; J7512; J7611; J7620

== ENCOUNTER 2021-09-18 14:29 | Observation (INO) | payer OTHER ==
[2021-09-18 15:04] LABS: #Basophils 0.1 thou/uL (0.0-0.2); #Eosinphils 0.1 thou/uL (0.0-0.7); #Lymphocytes 5.2 thou/uL (1.20-3.40); #Monocytes 1.2 thou/uL (0.11-0.59); #Neutrophils 7.5 thou/uL (1.40-6.50); %Basophils 0.9 % (0.0-1.0); %Lymphocytes 36.7 % (21.0-51.0); %Monocytes 8.1 % (0.0-10.0); %Neutrophils 53.2 % (42.0-75.0); Hemoglobin 14.4 g/dL (12.0-16.0); Mean Corpuscular HGB CONC 33.9 g/dL (32.0-36.0); Mean Corpuscular Hemoglobin 31.1 pg (27.0-31.0); Mean Corpuscular Volume 91.8 fL (78.0-98.0); Mean Platelet Volume 6.6 fL (7.4-10.4); Platelet Count 341 thou/uL (130-400); Red Blood Cell (RBC) Count 4.63 mill/uL (4.20-5.40); White Blood Cell (WBC) Count 14.1 thou/uL (4.8-10.8)
[2021-09-18 15:34] LABS: ALT (SGPT) 19 U/L (8-55); AST (SGOT) 17 U/L (5-34); Albumin 4.5 g/dL (3.5-5.0); Alkaline Phosphatase 94 U/L (40-110); Anion Gap 15 mmol/L (10-20); BUN (Urea Nitrogen) 11 mg/dL (9.8-20.1); Bilirubin, Total 0.4 mg/dL (0.2-1.2); Calc. Creatinine Clearance 0 mL/min (70-130); Calcium 9.3 mg/dL (7.8-10.44); Carbon Dioxide 23 mmol/L (22-29); Chloride 98 mmol/L (98-107); Globulin 2.8 g/dL (2.4-3.5); Glucose 86 mg/dL (70-105); Lipase 28 U/L (8-78); Potassium 4.8 mmol/L (3.5-5.1); Protein, Total 7.3 g/dL (6.0-8.3); Sodium 131 mmol/L (136-145)
[2021-09-18] MEDS ORDERED: Morphine 4 MG/ML VIAL ONE (16:39)
[2021-09-18] MEDS ORDERED: Ondansetron PF 4 MG/2 ML Vial ONE (16:40)
[2021-09-18] MEDS ORDERED: Ondansetron PF 4 MG/2 ML Vial IVP PRN (17:42)
[2021-09-18] MEDS ORDERED: Guaifenesin DM 100-10/5 ML UDCUP PO PRN (17:42)
[2021-09-18] MEDS ORDERED: Senokot S 8.6-50 MG TAB PO PRN (17:42)
[2021-09-18] MEDS ORDERED: Acetaminophen 325 MG TAB PO PRN (17:42)
[2021-09-18] MEDS ORDERED: Calcium Carbonate 500 MG ChewTAB PO PRN (17:42)
[2021-09-18] MEDS ORDERED: HYDROcodone/Acetaminophen 5/325 mg Tablet PO PRN (17:42)
[2021-09-18] MEDS ORDERED: HumaLOG 300 UNITS/3 ML VIAL SC PRN (17:58)
[2021-09-18] MEDS ORDERED: Dextrose 5% in Water 1,000 ML IV PRN (17:58)
[2021-09-18] MEDS ORDERED: Dextrose 50% Abboject 50 ML SYRINGE SLOW IVP PRN (17:58)
[2021-09-18 18:37] LABS: Troponin I Less than 0.010 ng/mL (< 0.028)
[2021-09-18 20:16] VITALS: BMI 36.6
[2021-09-18] MEDS ORDERED: clonazePAM 1 MG TAB PO PRN (20:34)
[2021-09-18 21:19] LABS: Troponin I Less than 0.010 ng/mL (< 0.028)
[2021-09-18] MEDS: Famotidine 20 MG TAB PO SCH (21:27)
[2021-09-18] MEDS: Nicotine 21 MG PATCH TD SCH (21:27)
[2021-09-18] MEDS: Gabapentin 300 MG CAP PO SCH (21:28)
[2021-09-18] MEDS: Oxybutynin ER 5 MG TAB PO SCH (21:28)
[2021-09-18] MEDS: OLANZapine 5 MG TAB PO SCH (21:28)
[2021-09-18] MEDS: Zolpidem Tartrate 5 MG TAB PO SCH (21:28)
[2021-09-18] MEDS: Prazosin HCl 1 MG CAP PO SCH (21:29)
[2021-09-18] MEDS: Metoprolol Tartrate 25 MG TAB PO SCH (21:29)
[2021-09-18] MEDS: metFORMIN 500 MG TAB PO SCH (21:29)
[2021-09-19 05:13] LABS: #Basophils 0.1 thou/uL (0.0-0.2); #Eosinphils 0.2 thou/uL (0.0-0.7); #Lymphocytes 3.8 thou/uL (1.20-3.40); #Monocytes 0.8 thou/uL (0.11-0.59); #Neutrophils 3.9 thou/uL (1.40-6.50); %Eosinophils 2.4 % (0.0-10.0); %Lymphocytes 43.6 % (21.0-51.0); %Monocytes 8.6 % (0.0-10.0); %Neutrophils 44.5 % (42.0-75.0); Hemoglobin 14.2 g/dL (12.0-16.0); Mean Corpuscular HGB CONC 32.1 g/dL (32.0-36.0); Mean Corpuscular Hemoglobin 29.9 pg (27.0-31.0); Mean Corpuscular Volume 93.1 fL (78.0-98.0); Platelet Count 280 thou/uL (130-400); RBC Distribution Width 13.7 % (11.5-14.5); Red Blood Cell (RBC) Count 4.74 mill/uL (4.20-5.40); White Blood Cell (WBC) Count 8.8 thou/uL (4.8-10.8)
[2021-09-19 05:38] LABS: Anion Gap 14 mmol/L (10-20); BUN (Urea Nitrogen) 10 mg/dL (9.8-20.1); Calc. Creatinine Clearance 94 mL/min (70-130); Carbon Dioxide 25 mmol/L (22-29); Chloride 105 mmol/L (98-107); Potassium 4.3 mmol/L (3.5-5.1); Sodium 140 mmol/L (136-145)
[2021-09-19 05:39] LABS: Calcium 8.8 mg/dL (7.8-10.44); Cardiac Risk 5.4 (Less than 4.5); Cholesterol 183 mg/dl (< 200 Desired); Glucose 118 mg/dL (70-105); HDL Cholesterol 34 mg/dL (>60 Neg Risk); LDL Cholesterol, Calculated 119 mg/dL; Triglycerides 151 mg/dL (Less than 150)
[2021-09-19 05:49] LABS: Hemoglobin A1c 6.5 % (4.0-6.0)
[2021-09-19] MEDS ORDERED: Aspirin 81 mg Enteric Coated Tablet PO SCH (09:00)
[2021-09-19] MEDS ORDERED: Regadenoson 0.4 MG/5 ML SYRINGE ONE (09:06)
[2021-09-19] MEDS: Citalopram 20 MG TAB PO SCH (11:35)
[2021-09-19] MEDS: busPIRone HCl 10 MG TAB PO SCH (11:35)
[2021-09-19] MEDS: Aspirin 81 mg Enteric Coated Tablet PO SCH (11:35)
[2021-09-19] MEDS: Metoprolol Tartrate 25 MG TAB PO SCH ×2 (11:36→21:07)
[2021-09-19] MEDS: Famotidine 20 MG TAB PO SCH ×2 (11:36→21:08)
[2021-09-19] MEDS: Gabapentin 300 MG CAP PO SCH ×2 (11:36→21:08)
[2021-09-19] MEDS: metFORMIN 500 MG TAB PO SCH ×2 (11:37→21:07)
[2021-09-19] MEDS: lamoTRIgine 100 MG TAB PO SCH (11:37)
[2021-09-19] MEDS ORDERED: Enoxaparin Sodium 40 MG/0.4 ML SYRINGE SC SCH (12:00)
[2021-09-19 12:19] LABS: SARS-CoV-2 PCR by NAA Not Detected (NotDetected)
[2021-09-19] MEDS: Nicotine 21 MG PATCH TD SCH (19:11)
[2021-09-19] MEDS ORDERED: Atorvastatin Calcium 40 MG TAB PO SCH (21:00)
[2021-09-19] MEDS: OLANZapine 5 MG TAB PO SCH (21:06)
[2021-09-19] MEDS: Prazosin HCl 1 MG CAP PO SCH (21:06)
[2021-09-19] MEDS: Zolpidem Tartrate 5 MG TAB PO SCH (21:07)
[2021-09-19] MEDS: Oxybutynin ER 5 MG TAB PO SCH (21:07)
[2021-09-20] MEDS ORDERED: Enoxaparin Sodium 40 MG/0.4 ML SYRINGE SC SCH (09:00)
[2021-09-20] MEDS: lamoTRIgine 100 MG TAB PO SCH (09:33)
[2021-09-20] MEDS: Famotidine 20 MG TAB PO SCH (09:33)
[2021-09-20] MEDS: Citalopram 20 MG TAB PO SCH (09:33)
[2021-09-20] MEDS: Gabapentin 300 MG CAP PO SCH (09:34)
[2021-09-20] MEDS: Metoprolol Tartrate 25 MG TAB PO SCH (09:34)
[2021-09-20] MEDS: Aspirin 81 mg Enteric Coated Tablet PO SCH (09:34)
[2021-09-20] MEDS: busPIRone HCl 10 MG TAB PO SCH (09:34)
[2021-09-20] MEDS: metFORMIN 500 MG TAB PO SCH (09:34)
[2021-09-20 12:06] VITALS: BP 154/70; TEMP 97.5
== END 2021-09-20 12:56 | disposition home or self-care (01) ==
LOC: ERS 14:29 → ERHOLD 17:37 → 2SW 19:43
PROVIDERS: ADMIT Internal Medicine; ATTEND Internal Medicine
DX: R07.9 Chest pain, unspecified (principal); I10 Essential (primary) hypertension; F17.210 Nicotine dependence, cigarettes, uncomplicated; J44.9 Chronic obstructive pulmonary disease, unspecified; I25.10 Atherosclerotic heart disease of native coronary artery without angina pectoris; E78.5 Hyperlipidemia, unspecified; E11.9 Type 2 diabetes mellitus without complications; M79.7 Fibromyalgia; K21.9 Gastro-esophageal reflux disease without esophagitis; Z79.82 Long term (current) use of aspirin; Z79.84 Long term (current) use of oral hypoglycemic drugs; Z79.899 Other long term (current) drug therapy; Z88.5 Allergy status to narcotic agent; Z95.1 Presence of aortocoronary bypass graft; Z20.822 Contact with and (suspected) exposure to COVID-19
CPT/HCPCS: 36415; 36416; 71045; 78452; 80048; 80053; 80061; 83036; 83690; 84443; 84484; 85025; 93005; 93017; 93306; 94760; 96372; 96374; 96375; 96376; A9500; G0378; J1650; J2270; J2405; J2785; U0003; U0005

== ENCOUNTER 2022-01-23 13:09 | Outpatient (CLI) | payer OTHER | END 2022-01-23 13:10 | disposition home or self-care (01) | LOC: BICMAMMO 13:09 | PROVIDERS: ATTEND Nurse Practitioner Family | DX: Z12.31 Encounter for screening mammogram for malignant neoplasm of breast (principal); Z85.43 Personal history of malignant neoplasm of ovary | CPT/HCPCS: 77063; 77067 ==

== ENCOUNTER 2022-04-11 12:23 | Outpatient (CLI) | payer OTHER | END 2022-04-11 12:24 | disposition home or self-care (01) | LOC: BICRAD 12:23 | PROVIDERS: ATTEND Nurse Practitioner Family | DX: R05.9 Cough, unspecified (principal); R09.89 Other specified symptoms and signs involving the circulatory and respiratory systems | CPT/HCPCS: 71046; U0003; U0005 ==

== ENCOUNTER 2022-05-30 08:53 | Outpatient (CLI) | payer OTHER | END 2022-05-30 08:54 | disposition home or self-care (01) | LOC: BICRAD 08:53 | PROVIDERS: ATTEND Nurse Practitioner Family | DX: R09.89 Other specified symptoms and signs involving the circulatory and respiratory systems (principal); R05.9 Cough, unspecified | CPT/HCPCS: 71046 ==

== ENCOUNTER 2022-12-06 13:49 | Outpatient (CLI) | payer OTHER | END 2022-12-06 13:50 | disposition home or self-care (01) | LOC: SCSMRI 13:49 | PROVIDERS: ATTEND Nurse Practitioner Family | DX: M51.17 Intervertebral disc disorders with radiculopathy, lumbosacral region (principal); M48.07 Spinal stenosis, lumbosacral region | CPT/HCPCS: 72148 ==

== ENCOUNTER 2022-12-17 13:36 | Outpatient (CLI) | payer OTHER | END 2022-12-17 13:37 | disposition home or self-care (01) | LOC: RAD 13:36 | PROVIDERS: ATTEND Nurse Practitioner Family | DX: M43.17 Spondylolisthesis, lumbosacral region (principal) | CPT/HCPCS: 72120 ==

== ENCOUNTER 2023-01-05 10:30 | Emergency (ER) | payer OTHER ==
[2023-01-05 11:19] LABS: Bacteria/HPF None Seen HPF (None Seen); Bilirubin Negative (Negative); Blood, Urine Negative (Negative); CAUTI Indications for Culture Pelvic or flank pain; Clarity Clear (Clear); Glucose, Urine (Dipstick) Normal (Negative); Ketone, Urine Negative (Negative); Leukocyte Negative Leu/uL (Negative); Nitrite Negative (Negative); Protein, Urine (Dipstick) 50 mg/dL (Neg-Trace); RBC/HPF 0-3 HPF (0-3); Specific Gravity, Urine 1.018 (1.002-1.036); Urine Culture Reflex No No; Urobilinogen Normal mg/dL (Less than 2); WBC/HPF 0-3 HPF (0-3)
[2023-01-05] MEDS ORDERED: diphenhydrAMINE 50 MG/ML VIAL ONE (11:32)
[2023-01-05] MEDS ORDERED: Ketorolac Tromethamine 30 MG/ML VIAL ONE (11:32)
[2023-01-05] MEDS ORDERED: Metoclopramide HCl 10 MG/2 ML VIAL ONE (11:32)
[2023-01-05 12:01] LABS: #Basophils 0.1 thou/uL (0.0-0.2); #Eosinphils 0.1 thou/uL (0.0-0.7); #Monocytes 0.9 thou/uL (0.11-0.59); #Neutrophils 7.1 thou/uL (1.40-6.50); %Basophils 0.4 % (0.0-1.0); %Eosinophils 0.6 % (0.0-10.0); %Lymphocytes 30.9 % (21.0-51.0); %Monocytes 7.4 % (0.0-10.0); %Neutrophils 60.4 % (42.0-75.0); Hematocrit 42.3 % (36.0-47.0); Hemoglobin 14.2 g/dL (12.0-16.0); Mean Corpuscular HGB CONC 33.6 g/dL (32.0-36.0); Mean Corpuscular Hemoglobin 27.2 pg (27.0-31.0); Mean Corpuscular Volume 80.9 fl (78.0-98.0); Mean Platelet Volume 8.7 fL (7.4-10.4); Platelet Count 314 10x3/uL (130-400); RBC Distribution Width 17.1 % (11.5-14.5); Red Blood Cell (RBC) Count 5.23 mill/uL (4.20-5.40); White Blood Cell (WBC) Count 11.8 10x3/uL (4.8-10.8)
[2023-01-05 12:29] LABS: ALT (SGPT) 14 U/L (8-55); AST (SGOT) 13 U/L (5-34); Albumin 4.7 g/dL (3.5-5.0); Alkaline Phosphatase 96 U/L (40-110); Anion Gap 15 mmol/L (10-20); BUN (Urea Nitrogen) 11 mg/dL (9.8-20.1); Bilirubin, Total 0.5 mg/dL (0.2-1.2); Calc. Creatinine Clearance 0 mL/min (70-130); Calcium 9.7 mg/dL (7.8-10.44); Carbon Dioxide 22 mmol/L (22-29); Chloride 102 mmol/L (98-107); Estimated GFR 82; Globulin 2.6 g/dL (2.4-3.5); Glucose 119 mg/dL (70-105); Lipase 19 U/L (8-78); Potassium 4.4 mmol/L (3.5-5.1); Protein, Total 7.3 g/dL (6.0-8.3); Sodium 135 mmol/L (136-145)
[2023-01-05 12:39] LABS: SARS-CoV-2 NAA Rapid Test Not Detected (NotDetected)
== END 2023-01-05 13:41 | disposition home or self-care (01) ==
LOC: ERS 10:30
DX: R11.10 Vomiting, unspecified (principal); R19.7 Diarrhea, unspecified; R51.9 Headache, unspecified; K21.9 Gastro-esophageal reflux disease without esophagitis; E78.00 Pure hypercholesterolemia, unspecified; J44.9 Chronic obstructive pulmonary disease, unspecified; F17.210 Nicotine dependence, cigarettes, uncomplicated; Z20.822 Contact with and (suspected) exposure to COVID-19; Z79.899 Other long term (current) drug therapy; Z79.82 Long term (current) use of aspirin
CPT/HCPCS: 36415; 70450; 80053; 81001; 83690; 85025; 96365; 96375; J1200; J1885; J2765

== ENCOUNTER 2023-03-01 11:01 | Emergency (ER) | payer OTHER ==
[2023-03-01 13:00] LABS: #Eosinphils 0.1 thou/uL (0.0-0.7); #Monocytes 0.6 thou/uL (0.11-0.59); #Neutrophils 5.2 thou/uL (1.40-6.50); %Basophils 0.2 % (0.0-1.0); %Lymphocytes 36.4 % (21.0-51.0); %Monocytes 6.3 % (0.0-10.0); %Neutrophils 55.9 % (42.0-75.0); Hematocrit 37.7 % (36.0-47.0); Hemoglobin 12.5 g/dL (12.0-16.0); Mean Corpuscular HGB CONC 33.2 g/dL (32.0-36.0); Mean Corpuscular Hemoglobin 28.4 pg (27.0-31.0); Mean Corpuscular Volume 85.7 fl (78.0-98.0); Mean Platelet Volume 8.7 fL (7.4-10.4); Platelet Count 250 10x3/uL (130-400); White Blood Cell (WBC) Count 9.3 10x3/uL (4.8-10.8)
[2023-03-01] MEDS ORDERED: Dexamethasone 10 MG/ML VIAL ONE (13:02)
[2023-03-01] MEDS ORDERED: Albuterol 200 PUFF INH ONE (13:07)
[2023-03-01] MEDS ORDERED: Acetaminophen 500 MG TAB ONE (13:09)
[2023-03-01 13:24] LABS: ALT (SGPT) 15 U/L (8-55); AST (SGOT) 15 U/L (5-34); Albumin 4.3 g/dL (3.5-5.0); Alkaline Phosphatase 73 U/L (40-110); Anion Gap 13 mmol/L (10-20); BUN (Urea Nitrogen) 9 mg/dL (9.8-20.1); Bilirubin, Total 0.3 mg/dL (0.2-1.2); Calc. Creatinine Clearance 0 mL/min (70-130); Calcium 8.8 mg/dL (7.8-10.44); Carbon Dioxide 26 mmol/L (22-29); Chloride 101 mmol/L (98-107); Estimated GFR 89; Globulin 2.5 g/dL (2.4-3.5); Glucose 101 mg/dL (70-105); Lipase 16 U/L (8-78); Potassium 4.3 mmol/L (3.5-5.1); Protein, Total 6.8 g/dL (6.0-8.3); Sodium 136 mmol/L (136-145)
[2023-03-01 13:28] LABS: Troponin I Less than 0.010 ng/mL (< 0.028)
== END 2023-03-01 13:57 | disposition home or self-care (01) ==
LOC: ERS 11:01
DX: U07.1 COVID-19 (principal); K21.9 Gastro-esophageal reflux disease without esophagitis; E78.00 Pure hypercholesterolemia, unspecified; I10 Essential (primary) hypertension; J44.9 Chronic obstructive pulmonary disease, unspecified; F17.210 Nicotine dependence, cigarettes, uncomplicated
CPT/HCPCS: 36415; 71045; 80053; 83690; 83880; 84484; 85025; 93005; J1100

== ENCOUNTER 2023-05-30 13:42 | Outpatient (CLI) | payer OTHER | END 2023-05-30 13:43 | disposition home or self-care (01) | LOC: BICRAD 13:42 | PROVIDERS: ATTEND Nurse Practitioner Family | DX: Z01.818 Encounter for other preprocedural examination (principal) | CPT/HCPCS: 71046 ==

== ENCOUNTER 2023-06-16 13:43 | Outpatient (CLI) | payer OTHER ==
[2023-06-16 15:22] LABS: Hematocrit 34.6 % (34.9-44.5); Hemoglobin 11.6 g/dL (12.0-15.5); Mean Corpuscular HGB CONC 33.5 g/dL (32.0-36.0); Mean Corpuscular Hemoglobin 29.4 pg (27.0-33.0); Mean Corpuscular Volume 87.8 fl (81.6-98.3); Mean Platelet Volume 9.4 fl (7.4-10.4); Platelet Count 244 10x3/uL (150-450); RBC Distribution Width 14.2 % (11.5-14.5); Red Blood Cell (RBC) Count 3.94 10x6/uL (3.90-5.03); White Blood Cell (WBC) Count 10.7 10x3/uL (3.5-10.5)
[2023-06-16 15:30] LABS: PTT 27.6 sec (22.0-33.0); Prothrombin Time 10.5 sec (9.5-12.1)
[2023-06-16 15:39] LABS: Anion Gap 16 mmol/L (10-20); BUN (Urea Nitrogen) 9 mg/dL (9.8-20.1); Calc. Creatinine Clearance 0 mL/min (70-130); Calcium 8.3 mg/dL (7.8-10.44); Carbon Dioxide 23 mmol/L (22-29); Chloride 102 mmol/L (98-107); Estimated GFR 82; Glucose 123 mg/dL (70-105); Potassium 3.8 mmol/L (3.5-5.1); Sodium 137 mmol/L (136-145)
== END 2023-06-16 13:44 | disposition home or self-care (01) ==
LOC: LABBT 13:43
PROVIDERS: ATTEND Neurological Surgery
DX: Z01.818 Encounter for other preprocedural examination (principal); M43.17 Spondylolisthesis, lumbosacral region; M99.63 Osseous and subluxation stenosis of intervertebral foramina of lumbar region; M76.31 Iliotibial band syndrome, right leg
CPT/HCPCS: 80048; 85027; 85610; 85730; 93005; 93010

== ENCOUNTER 2023-06-16 14:00 | Inpatient (IN) | payer OTHER ==
[2023-06-20] MEDS ORDERED: EPINEPHrine 1 MG/ML VIAL ONE (06:13)
[2023-06-20] MEDS ORDERED: Thrombin 5000 UNITS/5 ML VIAL ONE (06:13)
[2023-06-20] MEDS ORDERED: Bupivacaine PF 0.5% 30 ML VIAL ONE (06:13)
[2023-06-20] MEDS ORDERED: Sodium Chloride 0.9% 100 ML ONE (06:13)
[2023-06-20] MEDS ORDERED: Vancomycin 1 GM VIAL ONE (06:13)
[2023-06-20] MEDS ORDERED: CEFAZOLIN 2 GM VIAL ONE (06:13)
[2023-06-20] MEDS ORDERED: Prochlorperazine 10 MG/2 ML VIAL IM PRN (06:31)
[2023-06-20] MEDS ORDERED: Mag-Al 1200 mg/1200 mg/30 ML UDCUP PO PRN (06:31)
[2023-06-20] MEDS ORDERED: Ondansetron PF 4 MG/2 ML Vial IVP PRN (06:31)
[2023-06-20] MEDS ORDERED: Milk Of Magnesia 30 ML UDCUP PO PRN (06:31)
[2023-06-20] MEDS ORDERED: Acetaminophen 325 MG TAB PO PRN (06:31)
[2023-06-20] MEDS ORDERED: HYDROcodone/Acetaminophen 7.5/325 mg Tablet PO PRN (06:31)
[2023-06-20] MEDS ORDERED: Albumin 5% 500 ML ONE ×2 (06:55→10:12)
[2023-06-20] MEDS ORDERED: Midazolam HCl 2 mg/2 ml Vial ONE (06:55)
[2023-06-20] MEDS ORDERED: Fentanyl 250 MCG/5 ML VIAL ONE (06:58)
[2023-06-20] MEDS ORDERED: PROPOFOL 20 ML ONE ×2 (06:58→12:43)
[2023-06-20] MEDS ORDERED: Rocuronium Bromide 10 MG/ML (10ML VIAL) ONE (07:05)
[2023-06-20] MEDS ORDERED: Dexamethasone 20 MG/5 ML VIAL ONE (07:05)
[2023-06-20] MEDS ORDERED: Ondansetron PF 4 MG/2 ML Vial ONE (07:05)
[2023-06-20] MEDS ORDERED: ePHEDrine Sulfate 50 MG/10 ML VIAL ONE (07:45)
[2023-06-20] MEDS ORDERED: PHENYLEPHRINE-NS 100 MCG/ML 10 ML SYRINGE ONE ×2 (07:51→10:15)
[2023-06-20] MEDS ORDERED: Lidocaine 2% PF 5 ML VIAL ONE (07:51)
[2023-06-20] MEDS ORDERED: Vecuronium 10 MG VIAL ONE (08:40)
[2023-06-20] MEDS ORDERED: Ketorolac Tromethamine 30 MG (1 mL) VIAL ONE (10:15)
[2023-06-20] MEDS ORDERED: SUGAMMADEX SODIUM 200 MG/2 ML VIAL ONE (11:01)
[2023-06-20] MEDS ORDERED: fentaNYL PF 100 MCG/2 ML SYRINGE ONE (12:32)
[2023-06-20] MEDS ORDERED: fentaNYL 50 mcg/mL 1 mL Vial ONE ×2 (13:06→13:20)
[2023-06-20] MEDS ORDERED: HYDROmorphone 0.5 MG/0.5 ML SYRINGE ONE (13:36)
[2023-06-20] MEDS: tiZANidine HCl 4 MG TAB PO PRN (15:11)
[2023-06-20] MEDS: Morphine 2 MG/ML VIAL SLOW IVP PRN (15:12)
[2023-06-20] MEDS: CEFAZOLIN 2 GM in Sodium Chloride 0.9% 100 ML IVPB SCH ×2 (16:04→17:53)
[2023-06-20] MEDS: HYDROcodone/Acetaminophen 10/325 mg Tablet PO PRN (16:17)
[2023-06-20] MEDS ORDERED: HumaLOG 300 UNITS/3 ML VIAL SC PRN (16:39)
[2023-06-20] MEDS ORDERED: Dextrose 50% Abboject 50 ML SYRINGE SLOW IVP PRN (16:39)
[2023-06-20] MEDS ORDERED: Dextrose 5% in Water 1,000 ML IV PRN (16:39)
[2023-06-20] MEDS ORDERED: Glucagon 1 MG/ML KIT IM PRN (16:39)
[2023-06-20 17:29] VITALS: BMI 33.2
[2023-06-20] MEDS: clonazePAM 1 MG TAB PO PRN (17:54)
[2023-06-20] MEDS: HumaLOG 300 UNITS/3 ML VIAL SC PRN (18:32)
[2023-06-20] MEDS: Sodium Chloride 0.9% 1,000 ML IV SCH (19:27)
[2023-06-20] MEDS: Prazosin HCl 1 MG CAP PO SCH (21:25)
[2023-06-20] MEDS: diphenhydrAMINE 50 MG/ML VIAL IVP PRN (21:25)
[2023-06-20] MEDS: Gabapentin 300 MG CAP PO SCH (21:26)
[2023-06-20] MEDS: Zolpidem Tartrate 5 MG TAB PO SCH (21:26)
[2023-06-20] MEDS: Oxybutynin ER 5 MG TAB PO SCH (21:27)
[2023-06-20] MEDS: Atorvastatin Calcium 40 MG TAB PO SCH (21:28)
[2023-06-20] MEDS: busPIRone HCl 10 MG TAB PO SCH (21:28)
[2023-06-21] MEDS: Isosorbide Mononitrate 30 MG ER.TAB PO SCH (08:53)
[2023-06-21] MEDS: OLANZapine 5 MG TAB PO SCH (08:53)
[2023-06-21] MEDS: Varenicline Tartrate 0.5 MG TAB PO SCH (08:53)
[2023-06-21] MEDS: lamoTRIgine 100 MG TAB PO SCH (08:54)
[2023-06-21] MEDS: Metoprolol Tartrate 25 MG TAB PO SCH (08:54)
[2023-06-21] MEDS: Citalopram 10 MG TAB PO SCH (08:55)
[2023-06-21] MEDS: Amlodipine 10 MG TAB PO SCH (08:55)
[2023-06-21] MEDS: HYDROcodone/Acetaminophen 10/325 mg Tablet PO PRN (14:58)
[2023-06-21] MEDS: metFORMIN 500 MG TAB PO SCH (18:46)
[2023-06-21] MEDS: tiZANidine HCl 4 MG TAB PO SCH (20:44)
[2023-06-21] MEDS: Bacitracin 1 PK TOP SCH (22:42)
[2023-06-22 12:11] VITALS: BP 110/64; TEMP 99.4
[2023-06-22] MEDS: HYDROcodone/Acetaminophen 7.5/325 mg Tablet PO PRN (14:47)
== END 2023-06-22 15:15 | disposition home or self-care (01) | DRG 454 ==
LOC: SURG A 06-20 05:30 → SURG B 06-20 14:38
PROVIDERS: ADMIT Neurological Surgery; ATTEND Neurological Surgery
PROC: 0SG30AJ Fusion of Lumbosacral Joint with Interbody Fusion Device, Posterior Approach, Anterior Column, Open Approach (ICD-10-PCS; principal; 2023-06-20)
PROC: 0SG3071 Fusion of Lumbosacral Joint with Autologous Tissue Substitute, Posterior Approach, Posterior Column, Open Approach (ICD-10-PCS; 2023-06-20)
PROC: 01NB0ZZ Release Lumbar Nerve, Open Approach (ICD-10-PCS; 2023-06-20)
PROC: 01NR0ZZ Release Sacral Nerve, Open Approach (ICD-10-PCS; 2023-06-20)
PROC: 30233J1 Transfusion of Nonautologous Serum Albumin into Peripheral Vein, Percutaneous Approach (ICD-10-PCS; 2023-06-20)
DX: M43.17 Spondylolisthesis, lumbosacral region (principal); G95.20 Unspecified cord compression; F41.9 Anxiety disorder, unspecified; E78.00 Pure hypercholesterolemia, unspecified; G89.29 Other chronic pain; E11.9 Type 2 diabetes mellitus without complications; G43.909 Migraine, unspecified, not intractable, without status migrainosus; I10 Essential (primary) hypertension; M76.32 Iliotibial band syndrome, left leg; M76.31 Iliotibial band syndrome, right leg; E11.51 Type 2 diabetes mellitus with diabetic peripheral angiopathy without gangrene; M79.7 Fibromyalgia; F43.10 Post-traumatic stress disorder, unspecified; J44.9 Chronic obstructive pulmonary disease, unspecified; M54.16 Radiculopathy, lumbar region; I25.10 Atherosclerotic heart disease of native coronary artery without angina pectoris; F41.8 Other specified anxiety disorders; I95.2 Hypotension due to drugs; T40.605A Adverse effect of unspecified narcotics, initial encounter; E86.0 Dehydration; Z98.890 Other specified postprocedural states; Z95.1 Presence of aortocoronary bypass graft; Z90.710 Acquired absence of both cervix and uterus; Z88.5 Allergy status to narcotic agent
CPT/HCPCS: 36416; 93970; A4314; C1713; C1889; J0171; J0665; J1100; J1170; J1200; J1815; J1885; J2001; J2250; J2272; J2405; J2704; J3010; J3370; J3490; J7050; P9045

== ENCOUNTER 2023-06-30 13:59 | Emergency (ER) | payer OTHER ==
[2023-06-30 14:49] LABS: #Eosinphils 0.1 thou/uL (0.0-0.7); #Monocytes 0.8 thou/uL (0.11-0.59); %Basophils 0.3 % (0.0-1.0); %Lymphocytes 27.6 % (21.0-51.0); %Monocytes 11.5 % (0.0-10.0); %Neutrophils 58.9 % (42.0-75.0); Hemoglobin 8.2 g/dL (12.0-16.0); Mean Corpuscular HGB CONC 32.8 g/dL (32.0-36.0); Mean Corpuscular Hemoglobin 29.6 pg (27.0-31.0); Mean Corpuscular Volume 90.3 fl (78.0-98.0); Mean Platelet Volume 9.1 fL (7.4-10.4); Platelet Count 300 10x3/uL (130-400); RBC Distribution Width 14.2 % (11.5-14.5); Red Blood Cell (RBC) Count 2.77 mill/uL (4.20-5.40); White Blood Cell (WBC) Count 6.8 10x3/uL (4.8-10.8)
[2023-06-30 15:03] LABS: INR-International Normal Ratio 1.1; PTT 33.8 sec (22.9-36.1); Prothrombin Time 14.5 sec (12.0-14.7)
[2023-06-30 15:19] LABS: Troponin I Less than 0.010 ng/mL (< 0.028)
[2023-06-30 15:20] LABS: ALT (SGPT) 14 U/L (8-55); AST (SGOT) 12 U/L (5-34); Albumin 3.4 g/dL (3.5-5.0); Alkaline Phosphatase 72 U/L (40-110); Anion Gap 14 mmol/L (10-20); BUN (Urea Nitrogen) 8 mg/dL (9.8-20.1); Bilirubin, Total 0.4 mg/dL (0.2-1.2); Calc. Creatinine Clearance 0 mL/min (70-130); Calcium 8.3 mg/dL (7.8-10.44); Carbon Dioxide 23 mmol/L (22-29); Chloride 103 mmol/L (98-107); Estimated GFR 77; Globulin 2.5 g/dL (2.4-3.5); Glucose 158 mg/dL (70-105); Potassium 3.2 mmol/L (3.5-5.1); Protein, Total 5.9 g/dL (6.0-8.3); Sodium 137 mmol/L (136-145)
[2023-06-30] MEDS ORDERED: Morphine 4 MG/ML VIAL ONE (15:49)
[2023-06-30] MEDS ORDERED: Ketorolac Tromethamine 30 MG (1 mL) VIAL ONE (16:57)
[2023-06-30] MEDS ORDERED: HYDROcodone/Acetaminophen 5/325 mg Tablet ONE (22:02)
[2023-06-30] MEDS ORDERED: Ondansetron PF 4 MG/2 ML Vial ONE (22:02)
== END 2023-06-30 22:25 | disposition home or self-care (01) ==
LOC: ERS 13:59
DX: S60.221A Contusion of right hand, initial encounter (principal); M54.50 Low back pain, unspecified; M96.1 Postlaminectomy syndrome, not elsewhere classified; I25.2 Old myocardial infarction; I10 Essential (primary) hypertension; J44.9 Chronic obstructive pulmonary disease, unspecified; F17.210 Nicotine dependence, cigarettes, uncomplicated; W19.XXXA Unspecified fall, initial encounter
CPT/HCPCS: 36415; 70450; 72125; 72128; 72131; 80053; 84484; 85025; 85610; 85730; 93005; 96374; 96375; J1885; J2270; J2405

== ENCOUNTER 2025-01-23 10:16 | Emergency (ER) | payer OTHER ==
[2025-01-23 11:37] LABS: #Basophils 0.03 10x3/uL (0.0-0.2); #Eosinophils Less than 0.03 10x3/uL (0.0-0.7); #Monocytes 0.88 10x3/uL (0.11-0.59); #Neutrophils 4.30 10x3/uL (1.40-6.50); %Basophils 0.4 % (0.0-1.0); %Eosinophils 0.2 % (0.0-10.0); %Lymphocytes 36.4 % (21.0-51.0); %Monocytes 10.7 % (0.0-10.0); %Neutrophils 52.1 % (42.0-75.0); Hematocrit 36.7 % (36.0-47.0); Hemoglobin 12.7 g/dL (12.0-16.0); Mean Corpuscular Hemoglobin 30.5 pg (27.0-31.0); Mean Corpuscular Volume 88.2 fL (78.0-98.0); Platelet Count 191 10x3/uL (130-400); Red Blood Cell (RBC) Count 4.16 mill/uL (4.20-5.40); White Blood Cell (WBC) Count 8.26 10x3/uL (4.8-10.8)
[2025-01-23 11:55] LABS: ALT (SGPT) 14 U/L (Less than 34); AST (SGOT) 19 U/L (11-34); Albumin 3.9 g/dL (3.1-4.5); Alkaline Phosphatase 69 U/L (40-110); Anion Gap 13 mmol/L (10-20); BUN (Urea Nitrogen) 12 mg/dL (9.8-20.1); Bilirubin, Total 0.6 mg/dL (0.3-1.2); Calc. Creatinine Clearance 0 mL/min (70-130); Calcium 8.7 mg/dL (7.8-10.44); Carbon Dioxide 20 mmol/L (22-29); Chloride 105 mmol/L (98-107); Globulin 2.9 g/dL (2.4-3.5); Glucose 117 mg/dL (70-105); Lipase 49 U/L (8-78); Potassium 3.2 mmol/L (3.5-5.1); Sodium 135 mmol/L (136-145)
[2025-01-23 12:54] LABS: Glucose, Urine (Dipstick) Negative (Negative); Leukocyte Negative (Negative); Protein, Urine (Dipstick) Negative (Neg-Trace); Specific Gravity, Urine Less/Equal 1.005 (1.005-1.030)
[2025-01-23 12:58] LABS: Bacteria/HPF 1+ HPF (None Seen); CAUTI Indications for Culture Pelvic or flank pain; RBC/HPF 0-3 HPF (0-3); WBC/HPF 0-3 HPF (0-3)
[2025-01-23 13:00] LABS: Urine Culture Reflex No No
== END 2025-01-23 13:56 ==
LOC: ERS 10:16
DX: R10.9 Unspecified abdominal pain (principal); I10 Essential (primary) hypertension; J44.9 Chronic obstructive pulmonary disease, unspecified; I25.2 Old myocardial infarction; F17.210 Nicotine dependence, cigarettes, uncomplicated; Z95.1 Presence of aortocoronary bypass graft
CPT/HCPCS: 74177; 80053; 81001; 83690; 85025

== ENCOUNTER 2025-02-24 10:55 | Outpatient (CLI) | payer OTHER | END 2025-02-24 10:56 | disposition home or self-care (01) | LOC: BICMAMMO 10:55 | PROVIDERS: ATTEND Nurse Practitioner Family | DX: Z12.31 Encounter for screening mammogram for malignant neoplasm of breast (principal); Z12.2 Encounter for screening for malignant neoplasm of respiratory organs; Z78.0 Asymptomatic menopausal state; Z87.891 Personal history of nicotine dependence; J44.9 Chronic obstructive pulmonary disease, unspecified; M85.851 Other specified disorders of bone density and structure, right thigh; Z85.43 Personal history of malignant neoplasm of ovary | CPT/HCPCS: 71271; 77063; 77067; 77080 ==